=== PATIENT | male | born 1980 | race Hispanic/Latino ===

== ENCOUNTER 2018-12-20 21:22 | Emergency (ER) | payer SELFPAY ==
[~2018-12-20] VITALS: Ht 185.4 cm; Wt 78.9 kg
--- OUTSIDE RECORDS SUMMARY | 2018-12-20 21:24 | XMS REPORT ---
[facility] Address Unknown Phone Unavailable Care Team Providers Care Phone Specialist Name Role Phone Unavailable Unavailable Problems This patient has no known problems. Allergies, Adverse Reactions, Alerts Allergy Name Allergy Type Status Severity Reaction(s) Onset Date Inactive Date Treating Clinician Comments No Known Contrast Allergies DA Active U 2006-05-27 00:00:00 No Known Food Allergies DA Active U 2006-05-27 00:00:00 No Known Other Allergies DA Active U 2006-05-27 00:00:00 PENICILLIN DA Active U 2006-05-27 00:00:00 Medications This patient has no known medications.
== END 2018-12-20 22:22 | disposition left against medical advice (07) ==
LOC: ER 21:22
DX: R50.9 Fever, unspecified (principal); Z13.89 Encounter for screening for other disorder